=== PATIENT | female | born 1935 | race Caucasian/White ===

== ENCOUNTER → 2016-11-10 | Outpatient (CLI) | payer MEDICARE, BC ==
[~2016-11-10] MED LIST: ADALAT CC30 MG PO; ASPIRIN EC81 MG PO; BIOTIN PO; ELAVIL25 MG PO; FISH OIL1000 MG PO; LINZESS290 MCG PO; MOBIC15 MG PO; PROPRANOLOL HCL60 MG PO; VITAMIN D35000 UNI1 PO; ZYRTEC10 MG PO
== END | disposition disaster alternative care site (69) ==
LOC: GBCOE 12:44
DX: Z12.31 Encounter for screening mammogram for malignant neoplasm of breast (principal)
CPT/HCPCS: G0202